=== PATIENT | female | born 1970 | race Caucasian/White ===

== ENCOUNTER 2021-06-13 18:43 | Inpatient (IN) | payer MEDICAID, OTHER ==
[~2021-06-13] VITALS: Ht 167.6 cm; Wt 69.9 kg
[2021-06-13 18:43] VITALS: BP_SYST 154
[2021-06-13 20:33] LABS: BASOPHILS % (AUTO) 0.4 % (0.0-2.0); EOSINOPHILS % (AUTO) 0.1 % (0.0-4.0); HEMATOCRIT 45.5 % (36-48); HEMOGLOBIN 15.5 g/dL (12.0-16.0); LYMPHOCYTES # (AUTO) 1.3 K/uL (1.0-5.5); LYMPHOCYTES % (AUTO) 13.2 % (20.5-51.5); MEAN CORPUSCULAR HEMOGLOBIN 33 pg (27-31); MEAN CORPUSCULAR HGB CONC 34 % (32-36); MEAN CORPUSCULAR VOLUME 97 fL (79.0-98.0); MONOCYTES # (AUTO) 0.7 K/uL (0.0-1.0); MONOCYTES % (AUTO) 6.8 % (1.7-9.3); NEUTROPHILS # (AUTO) 7.8 K/uL (1.8-7.7); NEUTROPHILS % (AUTO) 79.5 % (40.0-70.0); PLATELET COUNT (AUTO) 361 K/uL (130-430); RED BLOOD CELL COUNT(AUTO) 4.68 MIL/uL (4.2-6.2); RED CELL DISTRIBUTION WIDTH 14.7 % (9.0-15.0); WHITE BLOOD COUNT (AUTO) 9.8 K/uL (4.8-10.8)
[2021-06-13 20:43] LABS: CALCIUM 10.1 mg/dL (8.4-11.0); CREATININE 0.9 mg/dL (0.55-1.30); POTASSIUM 3.7 mmol/L (3.5-5.1)
[2021-06-13 20:51] LABS: ALBUMIN 4.7 g/dL (3.4-4.8); TOTAL BILIRUBIN 0.4 mg/dL (0.0-1.0)
[2021-06-13] MEDS ORDERED: ONDANSETRON HCL 4 MG/2 ML VIAL IVP ONE (22:00)
[2021-06-13] MEDS ORDERED: NACL 0.9% 1,000 ML IV ONE (22:00)
[2021-06-13] MEDS ORDERED: PANTOPRAZOLE SODIUM 40 MG/VIAL (PROTONIX) IVP ONE (22:00)
[2021-06-14] MEDS ORDERED: MORPHINE 4 MG INJ. 4 MG/ML VIAL IVP ONE (00:30)
[2021-06-14] MEDS ORDERED: ONDANSETRON HCL 4 MG/2 ML VIAL IVP ONE (00:30)
[2021-06-14] MEDS ORDERED: FAMOTIDINE PF 20 MG/2 ML VIAL IVP ONE (00:30)
[2021-06-14 02:01] LABS: BILIRUBIN,URINE 1+ (NEGATIVE); CLARITY/URINE CLEAR (CLEAR); COLOR,URINE YELLOW (YELLOW); GLUCOSE,URINE NEGATIVE (NEGATIVE); KETONES,URINE 3+ (NEGATIVE); LEUKOCYTE ESTERASE ,URINE 2+ (NEGATIVE); NITRITE, URINE NEGATIVE (NEGATIVE); PROTEIN URINE 2+ (NEGATIVE); UROBILINOGEN,URINE 0.2 (0.2-1.0)
[2021-06-14 02:07] LABS: BLOOD, URINE TRACE (NEGATIVE)
[2021-06-14] MEDS ORDERED: KETOROLAC TROMETHAMINE 15 MG VIAL IVP PRN (02:30)
[2021-06-14 02:35] LABS: BACTERIA,URINE FEW /HPF (None Seen); WBC,URINE 20-50 /HPF (0-3)
[2021-06-14 02:36] LABS: MUCUS,URINE 3+ /LPF (None Seen)
[2021-06-14 06:52] VITALS: BP_SYST 153
[2021-06-14 09:05] VITALS: BP_SYST 125
[2021-06-14] MEDS: ONDANSETRON HCL 4 MG/2 ML VIAL IVP PRN ×2 (10:39→20:52)
[2021-06-14] MEDS ORDERED: NALOXONE HCL 0.4 MG/ML AMP (NARCAN) IVP PRN ×2 (11:00)
[2021-06-14] MEDS ORDERED: cefTRIAXone 1 GM in D5W 50 ML IV SCH (11:00)
[2021-06-14] MEDS: HYDROmorphone 1 MG/ML INJ. CARTRIDGE IVP PRN ×3 (11:59→20:53)
[2021-06-14] MEDS: PIPERACILLIN/TAZO 3.375/DEX-IS 50 ML IV SCH ×2 (12:00→17:07)
[2021-06-14 12:20] VITALS: BP_SYST 138
[2021-06-14 16:00] VITALS: BP_SYST 130
[2021-06-14 20:00] VITALS: BP_SYST 111
[2021-06-14] MEDS: FAMOTIDINE PF 20 MG/2 ML VIAL IVP SCH (20:51)
[2021-06-15] MEDS: PIPERACILLIN/TAZO 3.375/DEX-IS 50 ML IV SCH ×5 (00:18→23:20)
[2021-06-15] MEDS: HYDROmorphone 1 MG/ML INJ. CARTRIDGE IVP PRN ×6 (01:46→23:14)
[2021-06-15 04:00] VITALS: BP_SYST 135
[2021-06-15 07:33] LABS: BASOPHILS # (AUTO) 0.1 K/uL (0.0-0.2); EOSINOPHILS # (AUTO) 0.2 K/uL (0.0-0.4); EOSINOPHILS % (AUTO) 2.8 % (0.0-4.0); HEMATOCRIT 43.6 % (36-48); HEMOGLOBIN 14.6 g/dL (12.0-16.0); LYMPHOCYTES # (AUTO) 1.4 K/uL (1.0-5.5); LYMPHOCYTES % (AUTO) 22.9 % (20.5-51.5); MEAN CORPUSCULAR HEMOGLOBIN 32 pg (27-31); MEAN CORPUSCULAR HGB CONC 34 % (32-36); MEAN CORPUSCULAR VOLUME 97 fL (79.0-98.0); MONOCYTES # (AUTO) 0.7 K/uL (0.0-1.0); MONOCYTES % (AUTO) 11.1 % (1.7-9.3); NEUTROPHILS # (AUTO) 3.7 K/uL (1.8-7.7); NEUTROPHILS % (AUTO) 62.2 % (40.0-70.0); PLATELET COUNT (AUTO) 304 K/uL (130-430); RED BLOOD CELL COUNT(AUTO) 4.51 MIL/uL (4.2-6.2); RED CELL DISTRIBUTION WIDTH 14.4 % (9.0-15.0)
[2021-06-15 09:12] LABS: ALBUMIN 3.7 g/dL (3.4-4.8); CALCIUM 8.6 mg/dL (8.4-11.0); CREATININE 0.97 mg/dL (0.55-1.30); TOTAL BILIRUBIN 0.4 mg/dL (0.0-1.0)
[2021-06-15 09:26] LABS: POTASSIUM 2.9 mmol/L (3.5-5.1)
[2021-06-15] MEDS: ONDANSETRON HCL 4 MG/2 ML VIAL IVP PRN ×2 (10:42→14:28)
[2021-06-15] MEDS: FAMOTIDINE PF 20 MG/2 ML VIAL IVP SCH ×2 (10:42→20:30)
[2021-06-15] MEDS ORDERED: LACTOBACILLUS RHAMNOSUS GG 1 CAP CAPSULE PO ONE (11:00)
[2021-06-15] MEDS ORDERED: POTASSIUM CHLORIDE 20 MEQ/PKT PACKET PO ONE ×2 (11:00)
[2021-06-15] MEDS ORDERED: POTASSIUM CHLORIDE 20 MEQ/PKT PACKET PO SCH ×3 (11:00)
[2021-06-15 17:46] LABS: POTASSIUM 4.4 mmol/L (3.5-5.1)
[2021-06-15 20:08] VITALS: BP_SYST 116
[2021-06-15] MEDS: LACTOBACILLUS RHAMNOSUS GG 1 CAP CAPSULE PO SCH (20:29)
[2021-06-15 23:15] LABS: HCG,QUAL RESULT NEGATIVE (NEGATIVE)
[2021-06-16 01:07] VITALS: BP_SYST 114
[2021-06-16] MEDS: HYDROmorphone 1 MG/ML INJ. CARTRIDGE IVP PRN ×3 (03:25→23:24)
[2021-06-16] MEDS: PIPERACILLIN/TAZO 3.375/DEX-IS 50 ML IV SCH ×4 (05:13→23:20)
[2021-06-16 07:51] LABS: BASOPHILS # (AUTO) 0.1 K/uL (0.0-0.2); BASOPHILS % (AUTO) 1.3 % (0.0-2.0); EOSINOPHILS # (AUTO) 0.3 K/uL (0.0-0.4); EOSINOPHILS % (AUTO) 5.2 % (0.0-4.0); HEMATOCRIT 41.6 % (36-48); LYMPHOCYTES # (AUTO) 1.7 K/uL (1.0-5.5); LYMPHOCYTES % (AUTO) 32.7 % (20.5-51.5); MEAN CORPUSCULAR HEMOGLOBIN 33 pg (27-31); MEAN CORPUSCULAR HGB CONC 34 % (32-36); MEAN CORPUSCULAR VOLUME 97 fL (79.0-98.0); MONOCYTES # (AUTO) 0.6 K/uL (0.0-1.0); MONOCYTES % (AUTO) 10.6 % (1.7-9.3); NEUTROPHILS # (AUTO) 2.7 K/uL (1.8-7.7); NEUTROPHILS % (AUTO) 50.2 % (40.0-70.0); PLATELET COUNT (AUTO) 318 K/uL (130-430); RED BLOOD CELL COUNT(AUTO) 4.28 MIL/uL (4.2-6.2); RED CELL DISTRIBUTION WIDTH 14.4 % (9.0-15.0); WHITE BLOOD COUNT (AUTO) 5.4 K/uL (4.8-10.8)
[2021-06-16 08:37] LABS: ALBUMIN 3.6 g/dL (3.4-4.8); CALCIUM 9.4 mg/dL (8.4-11.0); CREATININE 1.04 mg/dL (0.55-1.30); POTASSIUM 4.4 mmol/L (3.5-5.1); TOTAL BILIRUBIN 0.5 mg/dL (0.0-1.0)
[2021-06-16] MEDS: LACTOBACILLUS RHAMNOSUS GG 1 CAP CAPSULE PO SCH ×2 (08:45→20:32)
[2021-06-16] MEDS: FAMOTIDINE PF 20 MG/2 ML VIAL IVP SCH ×2 (08:45→20:32)
[2021-06-16] MEDS ORDERED: ALTEPLASE 2 MG VIAL MC ONE (10:00)
[2021-06-16 19:25] VITALS: BP_SYST 112
[2021-06-16] MEDS: D5LR 1,000 ML IV SCH (23:15)
[2021-06-17] MEDS: HYDROmorphone 1 MG/ML INJ. CARTRIDGE IVP PRN ×5 (04:59→21:53)
[2021-06-17] MEDS: PIPERACILLIN/TAZO 3.375/DEX-IS 50 ML IV SCH ×3 (05:23→17:46)
[2021-06-17 05:31] LABS: PROTHROMBIN TIME 10.1 SECS (9.5-12.5)
[2021-06-17 08:00] VITALS: BP_SYST 119
[2021-06-17] MEDS: LACTOBACILLUS RHAMNOSUS GG 1 CAP CAPSULE PO SCH ×2 (09:00→21:46)
[2021-06-17] MEDS: FAMOTIDINE PF 20 MG/2 ML VIAL IVP SCH ×2 (09:21→21:45)
[2021-06-17] MEDS: D5LR 1,000 ML IV SCH ×2 (09:23→17:46)
[2021-06-17] MEDS ORDERED: BUPIVACAINE LIPOSOME/PF 266 MG/20 ML VIAL INFIL ONE (13:10)
[2021-06-17] MEDS ORDERED: NALOXONE HCL 0.4 MG/ML AMP (NARCAN) IVP PRN (13:30)
[2021-06-17] MEDS ORDERED: KETOROLAC TROMETHAMINE 30 MG VIAL IVP PRN (13:30)
[2021-06-17] MEDS ORDERED: HYDROmorphone 1 MG/ML INJ. CARTRIDGE IVP PRN (13:30)
[2021-06-17] MEDS ORDERED: ONDANSETRON HCL 4 MG/2 ML VIAL IVP PRN (13:30)
[2021-06-17] MEDS ORDERED: HYDROmorphone 2 MG/ML VIAL ONE (14:13)
[2021-06-17] MEDS ORDERED: ONDANSETRON HCL 4 MG/2 ML VIAL ONE (14:15)
[2021-06-17] MEDS: ONDANSETRON HCL 4 MG/2 ML VIAL IVP PRN (14:15)
[2021-06-17] MEDS ORDERED: KETOROLAC TROMETHAMINE 30 MG VIAL ONE (14:26)
[2021-06-17] MEDS ORDERED: MEPERIDINE HCL/PF 25 MG/ML DISP.SYRIN ONE (14:42)
[2021-06-17] MEDS ORDERED: ACETAMINOPHEN I.V. 1000 MG 100 ML IV ONE ×2 (15:02→16:00)
[2021-06-17 15:47] VITALS: BP_SYST 127
[2021-06-17 16:00] VITALS: BP_SYST 127
[2021-06-17] MEDS ORDERED: MEPERIDINE HCL/PF 25 MG/ML DISP.SYRIN IVP PRN (16:00)
[2021-06-17] MEDS ORDERED: GLYCOPYRROLATE 0.2 MG/ML VIAL IJ ONE (20:22)
[2021-06-17] MEDS ORDERED: NEOSTIGMINE METHYLSULFATE 1 MG/ML, 10 ML VIAL IVP ONE (20:22)
[2021-06-17] MEDS ORDERED: ONDANSETRON HCL 4 MG/2 ML VIAL IVP ONE (20:22)
[2021-06-17] MEDS ORDERED: SUCCINYLCHOLINE CHLORIDE 20 MG/ML(QUELICIN) IVP ONE (20:22)
[2021-06-17] MEDS ORDERED: NS IRRIG SOLN 1000 ML IR ONE (20:22)
[2021-06-17] MEDS ORDERED: ROCURONIUM BROMIDE 10 MG/ML (ZEMURON) IV ONE (20:22)
[2021-06-17] MEDS ORDERED: SEVOFLURANE 15 MIN GAS INH ONE (20:22)
[2021-06-17] MEDS ORDERED: NS 1000 ML IV.SOLN IV ONE (20:22)
[2021-06-17] MEDS ORDERED: KETOROLAC TROMETHAMINE 30 MG VIAL IVP ONE (20:22)
[2021-06-17] MEDS ORDERED: PROPOFOL 200MG/ 20ML VIAL (DIPRIVAN) IV ONE (20:22)
[2021-06-17 20:50] VITALS: BP_SYST 140
[2021-06-18] MEDS: HYDROmorphone 1 MG/ML INJ. CARTRIDGE IVP PRN ×5 (00:43→20:38)
[2021-06-18 00:48] VITALS: BP_SYST 124
[2021-06-18] MEDS: PIPERACILLIN/TAZO 3.375/DEX-IS 50 ML IV SCH ×4 (00:49→18:00)
[2021-06-18 07:12] LABS: BASOPHILS # (AUTO) 0.1 K/uL (0.0-0.2); BASOPHILS % (AUTO) 0.9 % (0.0-2.0); EOSINOPHILS # (AUTO) 0.3 K/uL (0.0-0.4); EOSINOPHILS % (AUTO) 4.1 % (0.0-4.0); HEMOGLOBIN 13.2 g/dL (12.0-16.0); LYMPHOCYTES # (AUTO) 1.5 K/uL (1.0-5.5); LYMPHOCYTES % (AUTO) 21.7 % (20.5-51.5); MEAN CORPUSCULAR HEMOGLOBIN 33 pg (27-31); MEAN CORPUSCULAR HGB CONC 34 % (32-36); MEAN CORPUSCULAR VOLUME 97 fL (79.0-98.0); MONOCYTES # (AUTO) 0.5 K/uL (0.0-1.0); MONOCYTES % (AUTO) 7.5 % (1.7-9.3); NEUTROPHILS # (AUTO) 4.5 K/uL (1.8-7.7); NEUTROPHILS % (AUTO) 65.8 % (40.0-70.0); PLATELET COUNT (AUTO) 302 K/uL (130-430); RED BLOOD CELL COUNT(AUTO) 4.03 MIL/uL (4.2-6.2); RED CELL DISTRIBUTION WIDTH 14.2 % (9.0-15.0)
[2021-06-18 07:34] LABS: ALBUMIN 3.2 g/dL (3.4-4.8); CREATININE 0.84 mg/dL (0.55-1.30); POTASSIUM 3.5 mmol/L (3.5-5.1); TOTAL BILIRUBIN 0.4 mg/dL (0.0-1.0)
[2021-06-18 08:30] VITALS: BP_SYST 119
[2021-06-18 08:45] LABS: WHITE BLOOD COUNT (AUTO) 6.9 K/uL (4.8-10.8)
[2021-06-18] MEDS: FAMOTIDINE PF 20 MG/2 ML VIAL IVP SCH ×2 (10:46→20:35)
[2021-06-18] MEDS: LACTOBACILLUS RHAMNOSUS GG 1 CAP CAPSULE PO SCH ×2 (10:46→20:35)
[2021-06-18] MEDS: D5LR 1,000 ML IV SCH ×2 (10:50→15:15)
[2021-06-18 16:00] VITALS: BP_SYST 128
[2021-06-18 20:23] VITALS: BP_SYST 134
[2021-06-19] MEDS: PIPERACILLIN/TAZO 3.375/DEX-IS 50 ML IV SCH ×4 (01:26→18:03)
[2021-06-19] MEDS: HYDROmorphone 1 MG/ML INJ. CARTRIDGE IVP PRN ×2 (01:50→08:14)
[2021-06-19] MEDS: D5LR 1,000 ML IV SCH (04:37)
[2021-06-19 05:09] VITALS: BP_SYST 124
[2021-06-19 08:00] VITALS: BP_SYST 109
[2021-06-19] MEDS: LACTOBACILLUS RHAMNOSUS GG 1 CAP CAPSULE PO SCH ×2 (08:14→21:18)
[2021-06-19] MEDS: FAMOTIDINE PF 20 MG/2 ML VIAL IVP SCH ×2 (08:15→21:18)
[2021-06-19 11:40] VITALS: BP_SYST 100
[2021-06-19] MEDS ORDERED: traMADol HCL HCL 50 MG TABLET (ULTRAM) PO ONE (13:15)
[2021-06-19] MEDS: KETOROLAC TROMETHAMINE 15 MG VIAL IVP PRN ×2 (15:10→21:21)
[2021-06-19 15:31] VITALS: BP_SYST 131
[2021-06-19 20:09] VITALS: BP_SYST 144
[2021-06-19] MEDS: traMADol HCL HCL 50 MG TABLET (ULTRAM) PO PRN (21:20)
[2021-06-20 00:30] VITALS: BP_SYST 109
[2021-06-20] MEDS: PIPERACILLIN/TAZO 3.375/DEX-IS 50 ML IV SCH ×4 (01:28→17:27)
[2021-06-20] MEDS: traMADol HCL HCL 50 MG TABLET (ULTRAM) PO PRN ×3 (03:26→18:49)
[2021-06-20] MEDS: KETOROLAC TROMETHAMINE 15 MG VIAL IVP PRN (03:27)
[2021-06-20] MEDS: D5LR 1,000 ML IV SCH ×2 (07:14→23:04)
[2021-06-20 08:30] VITALS: BP_SYST 140
[2021-06-20] MEDS: FAMOTIDINE PF 20 MG/2 ML VIAL IVP SCH ×2 (08:37→23:00)
[2021-06-20] MEDS: LACTOBACILLUS RHAMNOSUS GG 1 CAP CAPSULE PO SCH ×2 (08:37→23:00)
[2021-06-20 11:39] VITALS: BP_SYST 98
[2021-06-20] MEDS ORDERED: BISACODYL 5 MG TABLET.DR (DULCOLAX) PO ONE (12:30)
[2021-06-20] MEDS ORDERED: LACTULOSE 20 GM/30 ML UDC PO ONE (12:45)
[2021-06-20 16:00] VITALS: BP_SYST 102
[2021-06-20 16:28] VITALS: BP_SYST 102
[2021-06-20 20:15] VITALS: BP_SYST 143
[2021-06-20] MEDS: ONDANSETRON HCL 4 MG/2 ML VIAL IVP PRN (23:04)
[2021-06-21] MEDS: traMADol HCL HCL 50 MG TABLET (ULTRAM) PO PRN ×3 (01:13→16:11)
[2021-06-21 02:11] VITALS: BP_SYST 112
[2021-06-21 08:00] VITALS: BP_SYST 135
[2021-06-21] MEDS: LACTOBACILLUS RHAMNOSUS GG 1 CAP CAPSULE PO SCH ×2 (09:02→21:20)
[2021-06-21] MEDS: FAMOTIDINE PF 20 MG/2 ML VIAL IVP SCH ×2 (09:02→21:20)
[2021-06-21 12:00] VITALS: BP_SYST 127
[2021-06-21] MEDS: ONDANSETRON HCL 4 MG/2 ML VIAL IVP PRN (16:41)
[2021-06-21] MEDS ORDERED: GASTROGRAFIN 120 ML ONE (17:06)
[2021-06-21 18:35] LABS: BASOPHILS # (AUTO) 0.1 K/uL (0.0-0.2); BASOPHILS % (AUTO) 0.9 % (0.0-2.0); EOSINOPHILS # (AUTO) 0.3 K/uL (0.0-0.4); EOSINOPHILS % (AUTO) 4.5 % (0.0-4.0); HEMATOCRIT 38.8 % (36-48); HEMOGLOBIN 13.2 g/dL (12.0-16.0); LYMPHOCYTES # (AUTO) 1.2 K/uL (1.0-5.5); LYMPHOCYTES % (AUTO) 18.1 % (20.5-51.5); MEAN CORPUSCULAR HEMOGLOBIN 33 pg (27-31); MEAN CORPUSCULAR HGB CONC 34 % (32-36); MEAN CORPUSCULAR VOLUME 97 fL (79.0-98.0); MONOCYTES # (AUTO) 0.5 K/uL (0.0-1.0); MONOCYTES % (AUTO) 7.5 % (1.7-9.3); NEUTROPHILS # (AUTO) 4.7 K/uL (1.8-7.7); PLATELET COUNT (AUTO) 311 K/uL (130-430); RED BLOOD CELL COUNT(AUTO) 4.01 MIL/uL (4.2-6.2); RED CELL DISTRIBUTION WIDTH 14.1 % (9.0-15.0); WHITE BLOOD COUNT (AUTO) 6.9 K/uL (4.8-10.8)
[2021-06-21 18:45] LABS: CALCIUM 8.6 mg/dL (8.4-11.0); CREATININE 0.93 mg/dL (0.55-1.30); POTASSIUM 4.2 mmol/L (3.5-5.1)
[2021-06-21 18:57] LABS: ALBUMIN 2.3 g/dL (3.4-4.8); TOTAL BILIRUBIN 0.3 mg/dL (0.0-1.0)
[2021-06-21 20:00] VITALS: BP_SYST 127
[2021-06-21] MEDS: KETOROLAC TROMETHAMINE 15 MG VIAL IVP PRN (21:21)
[2021-06-21] MEDS: D5LR 1,000 ML IV SCH (23:59)
[2021-06-22 01:39] VITALS: BP_SYST 115
[2021-06-22] MEDS: KETOROLAC TROMETHAMINE 15 MG VIAL IVP PRN (03:54)
[2021-06-22] MEDS: traMADol HCL HCL 50 MG TABLET (ULTRAM) PO PRN ×4 (06:00→15:51)
[2021-06-22 08:00] VITALS: BP_SYST 132
[2021-06-22] MEDS: FAMOTIDINE PF 20 MG/2 ML VIAL IVP SCH (08:28)
[2021-06-22] MEDS: LACTOBACILLUS RHAMNOSUS GG 1 CAP CAPSULE PO SCH (08:28)
[2021-06-22 12:00] VITALS: BP_SYST 121
[2021-06-22] MEDS ORDERED: ONDA-8 TL (13:33)
[2021-06-22 16:00] VITALS: BP_SYST 128
[2021-06-22 20:00] VITALS: BP_SYST 134
== END 2021-06-22 20:22 | disposition home or self-care (01) | DRG 263 ==
LOC: SED 18:43 → SMU 06-14 02:29
PROVIDERS: ADMIT Internal Medicine; ATTEND Internal Medicine
PROC: BF121ZZ Fluoroscopy of Gallbladder using Low Osmolar Contrast (ICD-10-PCS; 2021-06-17)
PROC: 0FT44ZZ Resection of Gallbladder, Percutaneous Endoscopic Approach (ICD-10-PCS; principal; 2021-06-17 12:45)
DX: K80.12 Calculus of gallbladder with acute and chronic cholecystitis without obstruction (principal); E44.1 Mild protein-calorie malnutrition; K76.0 Fatty (change of) liver, not elsewhere classified; N39.0 Urinary tract infection, site not specified; G89.29 Other chronic pain; D64.9 Anemia, unspecified; K56.7 Ileus, unspecified; Z20.822 Contact with and (suspected) exposure to COVID-19; Z88.0 Allergy status to penicillin; Z88.8 Allergy status to other drugs, medicaments and biological substances; Z79.899 Other long term (current) drug therapy; Z68.24 Body mass index [BMI] 24.0-24.9, adult; Z59.00 Homelessness unspecified
CPT/HCPCS: 36415; 71045; 74018; 74250-TC; 74300; 76705; 80053; 81000; 83605; 83690; 83735; 84132; 84703; 85025; 85610-TC; 85730-TC; 87040; 87081; 87086; 88304; 93005; 96374; 96375; 96376; 99285; C1727; C9113; C9290; J0131; J0330; J1170; J1885; J1956; J2175; J2270; J2405; J2543; J2704; J2710; J2997; J3490; J7030; Q9963; Q9967

== ENCOUNTER 2023-11-24 04:54 | Emergency (ER) | payer MEDICAID ==
[~2023-11-24] VITALS: Ht 167.6 cm; Wt 81.6 kg
[~2023-11-24 04:54] MED LIST: ONDA-8 TL
[2023-11-24 05:08] VITALS: BP_SYST 130; PULSE 97; RESP 20; TEMP 98; O2SAT 98
[2023-11-24] MEDS: cefTRIAXone 1 GM in LIDOCAINE 1%, 20 ML MDV 2.1 ML IM ONE (06:01)
[2023-11-24] MEDS ORDERED: CLIN-142 PO (06:27)
[2023-11-24] MEDS ORDERED: NAPR-690 PO (06:27)
[2023-11-24 06:36] VITALS: BP_SYST 130; PULSE 97; RESP 20; TEMP 98; O2SAT 98
== END 2023-11-24 06:31 | disposition home or self-care (01) ==
LOC: SED 04:54
DX: S81.852A Open bite, left lower leg, initial encounter (principal); L03.116 Cellulitis of left lower limb; Z88.0 Allergy status to penicillin; Z88.1 Allergy status to other antibiotic agents; Z91.011 Allergy to milk products; Z79.899 Other long term (current) drug therapy; Z79.2 Long term (current) use of antibiotics; W54.0XXA Bitten by dog, initial encounter; Y93.89 Activity, other specified; Y92.89 Other specified places as the place of occurrence of the external cause; Y99.8 Other external cause status
CPT/HCPCS: 99283; 96372; J0696; J2003